=== PATIENT | female | born 1955 | race Caucasian/White ===

== ENCOUNTER 2020-04-03 23:34 | Emergency (ER) | payer OTHER ==
[2020-04-04 00:11] VITALS: BMI 25.4
[2020-04-04 02:00] LABS: BASO % 0.7 % (0-2.0); EOS % 1.1 % (0-4.5); HEMATOCRIT 40.8 % (32.4-45.2); HEMOGLOBIN 12.9 GM/dL (10.7-15.3); LYMPH % 28.2 % (8-40); MCH 25.9 pg (25.7-33.7); MCHC 31.6 g/dl (32.0-36.0); MEAN CELL VOLUME 81.8 fl (80-96); MEAN PLT VOLUME 8.9 fl (7.5-11.1); MONO % 7.7 % (3.8-10.2); NEUT % 62.3 % (42.8-82.8); PLATELET COUNT 339 K/MM3 (134-434); RBC 4.99 M/mm3 (3.60-5.2); RDW 14.7 % (11.6-15.6); WHITE BLOOD COUNT 7.6 K/mm3 (4.0-10.0)
[2020-04-04 02:01] LABS: CHOLESTEROL 156 mg/dL (50-200); TRIGLYCERIDES 42 mg/dL (0-150)
[2020-04-04 02:02] LABS: LDL CHOLESTEROL (ONLY SJRH) 94 mg/dL (5-100)
[2020-04-04 02:04] LABS: HDL CHOLESTEROL 57 mg/dL (40-60)
[2020-04-04 02:05] LABS: CHLORIDE 106 mmol/L (98-107); POTASSIUM 4.1 mmol/L (3.5-5.1); SODIUM 142 mmol/L (136-145)
[2020-04-04 02:07] LABS: CALCIUM 9.3 mg/dL (8.5-10.1)
[2020-04-04 02:08] LABS: ALBUMIN 3.9 g/dl (3.4-5.0); ANION GAP 8 MMOL/L (8-16); BLOOD UREA NITROGEN 12.4 mg/dL (7-18); CO2 28 mmol/L (21-32); GLUCOSE,RANDOM 113 mg/dL (74-106); INR 0.91 (0.83-1.09); PROTHROMBIN TIME (PATIENT) 11.1 SEC (9.7-13.0)
[2020-04-04 02:11] LABS: ACTIVATED PTT 31.4 SECONDS (25.2-36.5); CREATININE 0.7 mg/dL (0.55-1.3); SGOT/AST 11 U/L (15-37); SGPT/ALT 19 U/L (13-61)
[2020-04-04 02:12] LABS: BILIRUBIN,TOTAL 0.3 mg/dL (0.2-1); TOT PROT 7.1 g/dl (6.4-8.2)
[2020-04-04 02:14] LABS: ALK PHOS 101 U/L (45-117)
[2020-04-04 04:47] LABS: EPI CELLS 10 /uL (0-25.1); HYALINE CASTS 0 /uL (0-3.1); PH,URINE 6.5 (5.0-8.0); URINE APPEARANCE CLEAR; URINE BACTERIA 433 /uL (0-1359); URINE BILIRUBIN NEGATIVE (NEGATIVE); URINE COLOR YELLOW; URINE GLUCOSE (UA) NEGATIVE (NEGATIVE); URINE KETONE NEGATIVE (NEGATIVE); URINE LEUK ESTERASE TRACE (NEGATIVE); URINE NITRITE NEGATIVE (NEGATIVE); URINE PROTEIN NEGATIVE (NEGATIVE); URINE RBC 1 /uL (0-23.9); URINE UROBILINOGEN 0.2 mg/dL (0.2-1.0); URINE WBC 10 /uL (0-25.8)
[2020-04-04 04:54] VITALS: BP 153/75; PULSE 86
== END 2020-04-04 04:54 | disposition home or self-care (01) ==
LOC: JER 23:34 → MERGE 23:34 → JER 04-04 04:54
DX: G51.0 Bell's palsy (principal)
CPT/HCPCS: 36415; 70450-TC; 80053; 80061; 81003; 82550; 83721; 84484; 85025; 85610; 85730; 86850; 86900; 86901; 93005; 93010; 93880-TC; 99284-25